=== PATIENT | male | born 1960 | race Caucasian/White ===

== ENCOUNTER 2017-01-08 10:24 | Emergency (ER) | payer MEDICARE ==
--- NOTE | ~2017-01-08 | CT2 ---
[facility] A Service of [facility] RADIOLOGY TEXT RESULTS PATIENT: ROMÁN PLUMMER LOCATION: [facility] : 62 UNIT #: [id number] AGE: [address]: Adelfo Gray MD SEX: M ORDER DR: [id number] [facility] [address] [place], [place] [address] [id number] E MR#: [id number] Acc #: [id number] NAME: ROMÁN PLUMMER. : 1960 SEX: M STUDY DATE/TIME: 01/08/2017 12:31 UNIT: [facility] ROOM: STUDY DESCRIPTION: CT Abd and Pelv W Cont Attending Physician: Adelfo Gray M.D. Ordering Physician: Ellen Lindsey M.D. Primary Care Physician: Brittany Smith M.D. MEDICAL IMAGING REPORT This report is preliminary unless electronic signature is present EXAM CT of abdomen and pelvis with contrast. DATE OF EXAM 01/08/[address] of abdomen and pelvis with contrast dated 07/29/2016. HISTORY Abdominal pain for 2 weeks. Epigastric pain. Patient has dark stools now. Nausea, vomiting and diarrhea. TECHNIQUE NOTE: This CT exam was performed with one or more of the following radiation dose reduction techniques: automatic exposure control, adjustment of mA and/or kV according to patient size, and iterative reconstruction. FINDINGS CT of the abdomen and pelvis were obtained with IV and oral contrast in the axial plane followed by sagittal and coronal reformats. LOWER CHEST: Minimal atelectatic changes are noted in the right lung base. There are also atelectatic changes in the inferior aspect of the left lingula with a small nodular component of about a centimeter. Stable appearance in the last 6 months. No pleural effusion, pneumothorax or new lung mass. ABDOMEN: Status post cholecystectomy. Liver, spleen, pancreas, bilateral kidneys, and bilateral adrenal glands are within normal limits. Given the lack of oral contrast, evaluation of the GI tract is limited. No obvious bowel obstruction, free fluid or free air is seen intraperitoneally. [facility] A Service of [facility] RADIOLOGY TEXT RESULTS PATIENT: ROMÁN PLUMMER LOCATION: [facility] : 62 UNIT #: [id number] AGE: [address]: Adelfo Gray MD SEX: M ORDER DR: Appendix is within normal limits. No aortic aneurysm, dissection or significant lymphadenopathy. Degenerative changes are noted in the thoracolumbar spine, relatively worse at L4-5 with bnbyhepa-kb-czsiuu canal stenosis and moderate bilateral neural foraminal narrowing. The next worst level is L4-5. There is also chronic compression deformity of T8 vertebral body with about 30% to 40% maximal vertebral body height, chronic and stable. PELVIS: Urinary bladder, prostate, seminal vesicles and bowel loops do not demonstrate any significant abnormality. IMPRESSION 1. No acute abnormality in the abdomen or pelvis. 2. Degenerative changes are noted at multiple levels of the thoracolumbar spine, relatively worse at L4-5 followed by L3-4 as described above. 3. There is mild chronic superior endplate compression deformity of T8. Stable. 4. Inferior left lingula lobe of the lung demonstrates some atelectatic change with a nodular component measuring about a centimeter. It is relatively stable in the last 6 months. No significant new abnormality is seen in the lungs. Dictated by... Barrera Long M.D. THIS IS AN ELECTRONICALLY VERIFIED REPORT Barrera Long M.D. at 01/10/2017 1:51 PM CPR/fley TD: 01/08/2017 15:27 JOB #: [id number] MEDICAL IMAGING REPORT Page 1 of 1 COPY
[~2017-01-08 10:24] MED LIST: ACETAMINOPHEN PO; ADVAIR 500-501 EACH IH; ADVAIR 5001 DISK W/1 IH; ADVAIR 5001 DISK W/D PO; ALLER-TEC10 MG PO; AMBIEN; AMBIEN10 MG PO; AMBIEN12.5 MG PO; AMLODIPINE BESYL5 MG PO; AMOXICILLIN875 MG PO; ASPIRIN81 M1 PO; ASPIRIN81 M2 PO; ATROVENT; ATROVENT NEB; ATROVENT15 ML NS; AUGMENTIN875 M1 PO; AZITHROMYCIN1 GM PO; B-COMPLEX WITH1 EAC1 PO; BAYER ASPIRIN325 M1; BUPROPION HCL150 M1 PO; BUPROPION XL150 MG PO; CALAN-SR CAPL180 MG PO; CARVEDILOL25 MG PO; CHOL; COLACE PO; COREG PO; COREG12.5 M1 PO; COREG12.5 MG PO; COREG3.125 MG; COREG6.25 M1 PO; COREG6.25 MG PO; DALIRESP500 MCG DOB; DALIRESP500 MCG PO; DARVOCET-N 1001 TAB PO; DESYREL100 MG PO; DIGOX0.25 MG PO; DOCUSATE SODIU100 MG PO; DULOXETINE HCL60 MG PO; FISH OIL 1,0001 CA2 PO; FISH OIL 1,0001 CAP PO; FISH OIL 1,0001 EACH PO; FISH OIL 1,001000 MG PO; FISH OIL 10001000 MG PO; FISH OIL500 M2; FLEXERIL; FLEXERIL PO; FLEXERIL10 M1 PO; FLEXERIL10 MG PO; FLOMAX0.4 M1 PO; FLONASE 0.05% N16 G1 INH; FLONASE16 GM; FOSAMAX40 MG PO; Fosamax; HCTZ; HYDROCHLOROTHIA25 MG PO; HYDROCODON-ACE1 EAC9 PO; IPRATROPIUM0.2 MG/ML NEB; LEVAQUIN PO; LORTAB 10 MG-3473 ML; LORTAB 10-5001 EACH PO; LORTAB 7.51 TAB 7.5/ PO; MELATONIN5 M1 PO; NASONEX17 GM; NASONEX17 GM NS; NEURONTIN300 MG PO; NEXIUM; NEXIUM PO; NIASPAN; NIASPAN PO; NIASPAN1000 M1 PO; NIASPAN1000 MG PO; NORVASC PO; NYSTATIN5 ML PO; OXYCODONE HCL10 MG PO; PERCOCET10 PO; PERCOCET7.5 PO; PHENERGAN25 M1 PO; PHENERGAN25 MG PO; PREDNISONE PO; PREDNISONE10 MG PO; PRILOSEC PO; PROVENTIL17 GM IH; SERAX; SEROQUEL PO; SEROQUEL300 M1 PO; SEROQUEL400 MG PO; SINGULAIR; SINGULAIR PO; SINGULAIR5 MG PO; STOOL SOFTENER100 M1 PO; SYMBICORT INH; SYMBICORT80 INH; TRICOR145 MG PO; TYLENOL #3 PO; VALIUM2 MG PO; VERAPAMIL ER180 MG PO; VERAPAMIL ER240 M1 PO; VERAPAMIL ER240 MG PO; VERAPAMIL PO; VICODIN 5/500 T1 TAB PO; VITAMIN C500 M1 PO; VOLTAREN75 MG PO; WELLBUTRIN; WELLBUTRIN PO; WELLBUTRIN SR150 MG PO; XANAX0.5 M1 PO; XANAX0.5 MG PO; XOPENEX HFA15 GM NEB; XOPENEX0.63 MG/3 IH; XOPENEX1.25 MG/0. NEB; XOPENEX1.25 MG/3; XOPENEX1.25 MG/3 IH; XOPENEX1.25 MG/3 INH; ZITHROMAX PO; ZYRTEC PO; ZYRTEC10 M1 PO; ZYRTEC10 M2 PO; ZYRTEC10 M3 PO; [UNRECOGNIZED DRUG - OTHER]; [UNRECOGNIZED DRUG - OTHER]; [UNRECOGNIZED DRUG - OTHER]; [UNRECOGNIZED DRUG - OTHER]; [UNRECOGNIZED DRUG - OTHER] PO
[2017-01-08 10:49] LABS: BASOPHIL# 0.1 X10e3 (0-0.3); BASOPHIL% 0.7 % (0-2.5); EOSINOPHIL# 0.9 X10e3 (0-0.7); EOSINOPHIL% 5.9 % (0.0-7.0); HEMATOCRIT 48.3 % (38.0-50.0); LYMPHOCYTE# 3.1 X10e3 (1.0-3.5); LYMPHOCYTE% 20.2 % (17.0-45.0); MEAN CELL VOLUME 84.5 FL (83-96); MEAN CORPUSCULAR HGB CONC 33.2 g/dL (30-36); MEAN PLATELET VOLUME 8.7 FL (6.5-11.5); MONOCYTE# 1.2 X10e3 (0-1.0); MONOCYTE% 7.6 % (3.0-12.0); NEUTROPHIL# 10.1 X10e3 (1.5-7.1); NEUTROPHIL% 65.6 % (40-75); PLATELET COUNT 207 X10e3 (140-420); RED BLOOD COUNT 5.72 X10e (3.90-5.60); RED CELL DISTRIBUTION WIDTH 13.3 % (11.0-15.5); WHITE BLOOD COUNT 15.4 X10e3 (4.0-10.5)
[2017-01-08 10:52] LABS: URINE SOURCE CLEAN CATCH
[2017-01-08 11:01] LABS: PARTIAL THROMBOPLASTIN TIME 28.2 SECONDS (23.5-31.3); PROTHROMBIN TIME (PATIENT) 10.7 SECONDS (9.6-11.5)
[2017-01-08 11:13] LABS: DIFF IND NO
[2017-01-08 11:17] LABS: URINE APPEARANCE CLEAR; URINE BLOOD NEG (NEG); URINE COLOR DK YELLOW; URINE GLUCOSE NEG (NEG); URINE KETONE TRACE (NEG); URINE LEUKOCYTE ESTERASE TRACE (NEG); URINE NITRATE NEG (NEG); URINE PH 5.5 (5-8); URINE PROTEIN NEG (NEG); URINE SPECIFIC GRAVITY 1.028 (1.003-1.035)
[2017-01-08 11:22] LABS: CULTURE INDICATED? YES; URINE BACTERIA AUWI NEG (NEGATIVE); URINE SQUAMOUS EPITHELIAL CELL NONE SEEN /[HPF]
[2017-01-08 11:23] LABS: URINE BILIRUBIN NEG (NEG)
[2017-01-08 11:48] LABS: ALBUMIN SERUM 4.2 g/dL (3.5-5.0); BILIRUBIN, DIRECT 0.1 mg/dL (0.0-0.2); BILIRUBIN,INDIRECT 0.8 mg/dL (0.0-0.9); BILIRUBIN,TOTAL 0.9 mg/dL (0.2-2.0); BUN/CREATININE RATIO 12.22; CALCIUM SERUM 9.3 mg/dL (8.4-10.2); CREATININE SERUM 0.9 mg/dL (0.6-1.4); GLOM FILT RATE Estimated 95.8 mL/min (>60); POTASSIUM 3.8 mmol/L (3.5-5.1); PROTEIN TOTAL SERUM 7.7 g/dL (6.0-8.3)
== END 2017-01-08 15:10 | disposition home or self-care (01) ==
LOC: CED 10:24
PROVIDERS: Emergency Medicine
DX: R10.11 Right upper quadrant pain (principal); R10.12 Left upper quadrant pain; K92.2 Gastrointestinal hemorrhage, unspecified; I25.10 Atherosclerotic heart disease of native coronary artery without angina pectoris; I10 Essential (primary) hypertension; J44.9 Chronic obstructive pulmonary disease, unspecified; F41.9 Anxiety disorder, unspecified; F32.9 Major depressive disorder, single episode, unspecified; E78.00 Pure hypercholesterolemia, unspecified; Z90.49 Acquired absence of other specified parts of digestive tract; K21.9 Gastro-esophageal reflux disease without esophagitis; Z88.8 Allergy status to other drugs, medicaments and biological substances; Z91.040 Latex allergy status; Z79.899 Other long term (current) drug therapy; Z79.82 Long term (current) use of aspirin
CPT/HCPCS: 36415; 74177; 80048; 80076; 81003; 83690; 85025; 85610; 85730; 86900; 86901; 87086; 96361; 96374; 96375; 99291; C9113; J1170; J2405; Q9967

== ENCOUNTER 2017-01-09 20:54 | Emergency (ER) | payer MEDICARE ==
[2017-01-09 21:27] LABS: BASOPHIL# 0.1 X10e3 (0-0.3); BASOPHIL% 0.7 % (0-2.5); EOSINOPHIL# 0.4 X10e3 (0-0.7); EOSINOPHIL% 2.7 % (0.0-7.0); HEMATOCRIT 43.1 % (38.0-50.0); HEMOGLOBIN 14.5 gm/dL (13.0-16.0); LYMPHOCYTE% 20.5 % (17.0-45.0); MEAN CELL VOLUME 83.7 FL (83-96); MEAN CORPUSCULAR HEMOGLOBIN 28.2 PG (28-34); MEAN CORPUSCULAR HGB CONC 33.7 g/dL (30-36); MEAN PLATELET VOLUME 8.4 FL (6.5-11.5); MONOCYTE# 1.1 X10e3 (0-1.0); MONOCYTE% 7.2 % (3.0-12.0); NEUTROPHIL# 10.1 X10e3 (1.5-7.1); NEUTROPHIL% 68.9 % (40-75); PLATELET COUNT 194 X10e3 (140-420); RED BLOOD COUNT 5.14 X10e (3.90-5.60); RED CELL DISTRIBUTION WIDTH 13.2 % (11.0-15.5); WHITE BLOOD COUNT 14.7 X10e3 (4.0-10.5)
[2017-01-09 21:35] LABS: DIFF IND NO
[2017-01-09 21:54] LABS: ALBUMIN SERUM 4.2 g/dL (3.5-5.0); BILIRUBIN, DIRECT 0.1 mg/dL (0.0-0.2); BILIRUBIN,INDIRECT 0.9 mg/dL (0.0-0.9); BUN/CREATININE RATIO 10.9; CALCIUM SERUM 9.4 mg/dL (8.4-10.2); CREATININE SERUM 1.1 mg/dL (0.6-1.4); GLOM FILT RATE Estimated 75.2 mL/min (>60); POTASSIUM 3.8 mmol/L (3.5-5.1); PROTEIN TOTAL SERUM 7.6 g/dL (6.0-8.3)
[2017-01-09 22:21] LABS: URINE SOURCE CLEAN CATCH
[2017-01-09 22:31] LABS: URINE APPEARANCE CLEAR; URINE BILIRUBIN NEG (NEG); URINE BLOOD NEG (NEG); URINE COLOR YELLOW; URINE GLUCOSE NEG (NEG); URINE KETONE NEG (NEG); URINE LEUKOCYTE ESTERASE NEG (NEG); URINE NITRATE NEG (NEG); URINE PROTEIN NEG (NEG); URINE SPECIFIC GRAVITY 1.017 (1.003-1.035)
[2017-01-09 22:39] LABS: CULTURE INDICATED? NO
== END 2017-01-10 02:15 | disposition home or self-care (01) ==
LOC: CED 20:54
DX: R10.9 Unspecified abdominal pain (principal); Z91.040 Latex allergy status; Z88.8 Allergy status to other drugs, medicaments and biological substances; Z79.82 Long term (current) use of aspirin; Z79.899 Other long term (current) drug therapy
CPT/HCPCS: 36415; 80048; 80076; 81003; 83690; 85025; 96374; 96375; 99284; C9113; J2405

== ENCOUNTER 2017-01-17 05:49 | Emergency (ER) | payer MEDICARE ==
--- NOTE | ~2017-01-17 | EKG ---
PATIENT: ROMÁN PLUMMER UNIT #: [id number] Ventricular Rate: 129 BPM Atrial Rate: 129 BPM P-R Interval: 152 ms QRS Duration: 88 ms Q-T Interval: 294 ms QTC Calculation(Bezet): 430 ms P [place]: 52 degrees Calculated R [place]: -2 degrees Calculated T [place]: 51 degrees Diagnosis Line: Sinus tachycardia Diagnosis Line: Otherwise normal ECG Diagnosis Line: When compared with ECG of 30-JUL-2016 17:58, Diagnosis Line: Nonspecific T wave abnormality no longer evident Diagnosis Line: in Inferior leads Diagnosis Line: Nonspecific T wave abnormality, improved in Diagnosis Line: Lateral leads Diagnosis Line: Confirmed by MAHESH MILLARD MD ([id number]) on 01/18/2017 Diagnosis Line: 5:30:18 AM INTERPRETING MD: VENICE CARBONE
--- NOTE | ~2017-01-17 | CT2 ---
[facility] A Service of [facility] & [facility] RADIOLOGY TEXT RESULTS PATIENT: ROMÁN PLUMMER LOCATION: [facility] : 62 UNIT #: [id number] AGE: [address]: Sathish Watts MD SEX: M ORDER DR: [id number] [facility] [address] [place], [place] [address] [id number] E MR#: [id number] Acc #: [id number] NAME: ROMÁN PLUMMER : 1960 SEX: M STUDY DATE/TIME: 01/17/2017 8:09 UNIT: [facility] ROOM: STUDY DESCRIPTION: CT Abd and Pelv W Cont Attending Physician: Sathish Watts M.D. Ordering Physician: Michael Canas M.D. Primary Care Physician: Brittany Smith M.D. MEDICAL IMAGING REPORT This report is preliminary unless electronic signature is present EXAM CT abdomen and pelvis with contrast, 01/17/2017. HISTORY 56-year-old male in the ED complaining of mid to lower abdomen pain beginning at about 2000 hours on 01/16/2017. He was recently evaluated through the here on 01/08/2017 with 2-week history of abdomen pain, and abdomen CT at that time showed no acute abnormality. TECHNIQUE CT examination of the abdomen and pelvis with IV contrast. GI contrast material was not ordered. This CT exam was performed with one or more of the following radiation dose reduction techniques: automatic exposure control, adjustment of mA and/or kV according to patient size, and iterative reconstruction. FINDINGS Abdomen: Cholecystectomy. No bile duct dilatation. Liver, pancreas and spleen are normal in size and appearance. Small bowel and colon are normal in caliber and appearance, as imaged. The appendix appears normal. Both kidneys are negative with no evidence of urinary obstruction. Normal-caliber abdominal aorta. Mesenteric arteries are widely patent. Pelvis: Bladder, prostate and rectum are within normal limits. No significant inguinal or abdominal wall hernia. Lung base images show minimal scarring or atelectasis in the right lung base. IMPRESSION 1. No acute abnormality is identified within the abdomen or pelvis. No change since the recent study of 01/08/2017. STS. [facility] A Service of [facility] & [facility] RADIOLOGY TEXT RESULTS PATIENT: ROMÁN PLUMMER LOCATION: [facility] : 62 UNIT #: [id number] AGE: [address]: Sathish Watts MD SEX: M ORDER DR: 2. Cholecystectomy. 3. The appendix appears normal. Dictated by... Reese Higgins M.D. THIS IS AN ELECTRONICALLY VERIFIED REPORT Reese Higgisn M.D. at 01/18/2017 2:04 PM Vishal TD: 01/17/2017 10:40 JOB #: [id number] MEDICAL IMAGING REPORT Page 1 of 1 COPY
--- NOTE | ~2017-01-17 | CR72 ---
[facility] A Service of [facility] & [facility] RADIOLOGY TEXT RESULTS PATIENT: ROMÁN PLUMMER LOCATION: [facility] : 62 UNIT #: [id number] AGE: [address]: Sathish Watts MD SEX: M ORDER DR: [id number] [facility] [address] [place], [place] [address] [id number] E MR#: [id number] Acc #: [id number] NAME: ROMÁN PLUMMER : 1960 SEX: M STUDY DATE/TIME: 01/17/2017 5:32 UNIT: [facility] ROOM: STUDY DESCRIPTION: CR Chest Single View Portable Attending Physician: Sathish Watts M.D. Ordering Physician: Michael Canas M.D. Primary Care Physician: Brittany Smith M.D. MEDICAL IMAGING REPORT This report is preliminary unless electronic signature is present EXAM Portable chest INDICATION Chest pain beginning this morning. COMPARISON 05/03/2016. FINDINGS A portable view of the chest was obtained. The heart size and vascularity are normal and the lungs are clear. The bones are normal. IMPRESSION No active disease. Dictated by... Frankie Vela M.D. THIS IS AN ELECTRONICALLY VERIFIED REPORT Frankie Vela M.D. at 01/17/2017 1:24 PM ROLAND/alivia TD: 01/17/2017 09:37 JOB #: [id number] MEDICAL IMAGING REPORT Page 1 of 1 COPY
[2017-01-17 05:31] LABS: POC - CKMB <1.0 ng/mL (0.0-7.9); POC - TROPONIN <0.05 ng/mL (<=0.05)
[2017-01-17 06:04] LABS: BASOPHIL# 0.1 X10e3 (0-0.3); BASOPHIL% 0.6 % (0-2.5); EOSINOPHIL# 0.4 X10e3 (0-0.7); EOSINOPHIL% 2.7 % (0.0-7.0); HEMATOCRIT 43.3 % (38.0-50.0); HEMOGLOBIN 14.2 gm/dL (13.0-16.0); LYMPHOCYTE# 2.4 X10e3 (1.0-3.5); LYMPHOCYTE% 17.7 % (17.0-45.0); MEAN CELL VOLUME 84.7 FL (83-96); MEAN CORPUSCULAR HEMOGLOBIN 27.8 PG (28-34); MEAN CORPUSCULAR HGB CONC 32.8 g/dL (30-36); MEAN PLATELET VOLUME 8.6 FL (6.5-11.5); MONOCYTE% 7.2 % (3.0-12.0); NEUTROPHIL# 9.9 X10e3 (1.5-7.1); NEUTROPHIL% 71.8 % (40-75); PLATELET COUNT 190 X10e3 (140-420); RED BLOOD COUNT 5.11 X10e (3.90-5.60); RED CELL DISTRIBUTION WIDTH 13.3 % (11.0-15.5); WHITE BLOOD COUNT 13.8 X10e3 (4.0-10.5)
[2017-01-17 06:05] LABS: DIFF IND NO
[2017-01-17 06:33] LABS: ALBUMIN SERUM 4.1 g/dL (3.5-5.0); BILIRUBIN, DIRECT 0.1 mg/dL (0.0-0.2); BILIRUBIN,INDIRECT 0.9 mg/dL (0.0-0.9); CALCIUM SERUM 8.8 mg/dL (8.4-10.2); CREATININE SERUM 0.8 mg/dL (0.6-1.4); GLOM FILT RATE Estimated 100.6 mL/min (>60); POTASSIUM 3.8 mmol/L (3.5-5.1); PROTEIN TOTAL SERUM 7.3 g/dL (6.0-8.3)
[2017-01-17 07:37] LABS: POC - CKMB <1.0 ng/mL (0.0-7.9); POC - TROPONIN <0.05 ng/mL (<=0.05)
== END 2017-01-17 11:22 | disposition home or self-care (01) ==
LOC: CED 05:49
PROVIDERS: Emergency Medicine
DX: R10.30 Lower abdominal pain, unspecified (principal); I25.2 Old myocardial infarction; E78.5 Hyperlipidemia, unspecified; I10 Essential (primary) hypertension; Z87.442 Personal history of urinary calculi; J44.9 Chronic obstructive pulmonary disease, unspecified; Z91.040 Latex allergy status; Z88.8 Allergy status to other drugs, medicaments and biological substances; Z91.018 Allergy to other foods; Z79.899 Other long term (current) drug therapy
CPT/HCPCS: 36415; 71010; 74177; 80048; 80076; 82553; 83605; 83690; 84484; 85025; 93005; 96361; 96374; 96375; 99284; J1170; J2405; Q9967

== ENCOUNTER 2017-01-21 17:23 | Emergency (ER) | payer MEDICARE, OTHER ==
[2017-01-21 17:53] LABS: BASOPHIL% 0.3 % (0-2.5); EOSINOPHIL# 0.6 X10e3 (0-0.7); EOSINOPHIL% 3.7 % (0.0-7.0); HEMOGLOBIN 15.8 gm/dL (13.0-16.0); LYMPHOCYTE% 13.2 % (17.0-45.0); MEAN CELL VOLUME 84.3 FL (83-96); MEAN CORPUSCULAR HEMOGLOBIN 28.4 PG (28-34); MEAN CORPUSCULAR HGB CONC 33.7 g/dL (30-36); MONOCYTE# 1.2 X10e3 (0-1.0); MONOCYTE% 7.7 % (3.0-12.0); NEUTROPHIL# 11.4 X10e3 (1.5-7.1); NEUTROPHIL% 75.1 % (40-75); PLATELET COUNT 193 X10e3 (140-420); RED BLOOD COUNT 5.58 X10e (3.90-5.60); RED CELL DISTRIBUTION WIDTH 13.3 % (11.0-15.5); WHITE BLOOD COUNT 15.2 X10e3 (4.0-10.5)
[2017-01-21 17:55] LABS: DIFF IND NO
[2017-01-21 18:11] LABS: ALBUMIN SERUM 4.2 g/dL (3.5-5.0); BILIRUBIN, DIRECT 0.1 mg/dL (0.0-0.2); BILIRUBIN,INDIRECT 0.7 mg/dL (0.0-0.9); BILIRUBIN,TOTAL 0.8 mg/dL (0.2-2.0); CALCIUM SERUM 9.5 mg/dL (8.4-10.2); GLOM FILT RATE Estimated 84.4 mL/min (>60); POTASSIUM 4.6 mmol/L (3.5-5.1)
== END 2017-01-21 19:18 | disposition home or self-care (01) ==
LOC: SED 17:23
PROVIDERS: Nurse Practitioner
DX: R10.11 Right upper quadrant pain (principal); R10.13 Epigastric pain; R11.2 Nausea with vomiting, unspecified; E78.5 Hyperlipidemia, unspecified; I10 Essential (primary) hypertension; J44.9 Chronic obstructive pulmonary disease, unspecified; I25.2 Old myocardial infarction; Z87.442 Personal history of urinary calculi; Z79.899 Other long term (current) drug therapy; Z91.040 Latex allergy status; Z91.018 Allergy to other foods; Z88.8 Allergy status to other drugs, medicaments and biological substances
CPT/HCPCS: 36415; 80048; 80076; 82150; 82270; 83690; 85025; 94640; 96361; 96374; 99284; J2405

== ENCOUNTER 2017-01-29 18:39 | Inpatient (IN) | payer MEDICARE ==
--- NOTE | ~2017-01-29 | DS ---
Unit #: [id number] #: [id number] Patient: ROMÁN PLUMMER [id number] [address] [id number] I MR#: [id number] NAME: ORMÁN PLUMMER. ROOM: 242 Age: 56 Sex: M Admission Date: 01/29/2017 : 1960 Discharge Date: 02/01/2017 Attending Physician: Gagan Molina M.D. Primary Care Physician: Brittany Smith M.D. DISCHARGE SUMMARY DISCHARGE DIAGNOSES 1. Acute exacerbation of chronic obstructive pulmonary disease. 2. Acute bronchitis. 3. Chronic abdominal pain, scheduled to see GI tomorrow. 4. Leukocytosis most likely secondary to steroids. 5. Microscopic hematuria with a urinalysis 5 to 10 red cells. 6. Chronic obstructive pulmonary disease/asthma on chronic prednisone therapy. 7. Suspected noncompliance with inhaled controlling agents as well as office followup. 8. Obstructive sleep apnea, noncompliant with continuous positive airway pressure. 9. Hypertension. 10. Hyperlipidemia. 11. Anxiety. 12. Depression. 13. Chronic pain. 14. History of atrial arrhythmias. 15. Gastroesophageal reflux. DISCHARGE MEDICATIONS 1. Dulera 200 mg two puffs twice a day with spacer. 2. Albuterol as needed. 3. Prednisone 40 mg. Taper to 10 mg a day. Further tapering as per Dr. Carter. 4. Z-Arcenio as directed. 5. Xanax 0.5 mg b.i.d. 6. Coreg 3.125 mg b.i.d. 7. Verapamil 240 mg a day. 8. Oxycodone as per his family physician. 9. Zyban 150 mg twice a day. 10. Zofran p.r.n. 11. Claritin 10 mg a day. 12. Phenergan p.r.n. 13. Ambien p.r.n. as per previous prescriptions. 14. Niacin 2,000 mg at bedtime. 15. Aspirin 81 mg a day if he was taking it previously. Please note Daliresp has been discontinued given his abdominal discomfort. DIET As tolerated. ACTIVITY Unit #: [id number] #: [id number] Patient: ROMÁN PLUMMER No specific restrictions. FOLLOWUP 1. Dr. Smith for general medical care including his microscopic hematuria in two weeks. 2. He will keep his appointment with his GI physician tomorrow. 3. He will follow up in our office in approximately two weeks and then further follow up with Dr. Carter. DESCRIPTION OF HOSPITALIZATION The patient was admitted through the emergency room by Dr. Thompson, treated for an exacerbation with steroids, antibiotics, nebulized bronchodilators. He improved as suspected. He did have a leukocytosis. Chest x-ray was negative. He was totally asymptomatic and review of systems did not identify any infection. Urinalysis revealed 5 to 10 red cells but no white cells. On the day of discharge, he had rare wheezing. He was able to perform all activities of daily living. He was on room air. He was discharged in improved condition. Once again, I have discussed with him the absolute importance of compliance with office followup, compliance with inhaled bronchodilators as well as controlling agents. Long-term prednisone therapy as per Dr. Carter. Dictated by... Gagan Molina M.D. GALLO/mamie TD: 02/02/2017 08:18 JOB #: [id number] DISCHARGE SUMMARY Page 1 of 1 X Gagan Molina MD X DISCHARGE SUMMARY
--- NOTE | ~2017-01-29 | CR72 ---
[facility] A Service of [facility] & [facility] RADIOLOGY TEXT RESULTS PATIENT: ROMÁN PLUMMER LOCATION: [facility] 242- : 62 UNIT #: [id number] AGE: [address]: Gagan Molina MD SEX: M ORDER DR: [id number] [facility] [address] [place], [place] [address] [id number] E MR#: [id number] Acc #: [id number] NAME: ROMÁN PLUMMER : 1960 SEX: M STUDY DATE/TIME: 01/29/2017 18:00 UNIT: [facility] ROOM: STUDY DESCRIPTION: CR Chest Single View Portable Attending Physician: Maikel Love M.D. Ordering Physician: Lazarus Glass M.D. Primary Care Physician: Brittany Smith M.D. MEDICAL IMAGING REPORT This report is preliminary unless electronic signature is present EXAM Portable chest. HISTORY Shortness of air, cough and congestion for 3 days. FINDINGS The cardiac size and pulmonary vascularity are normal. Mild mid-right thoracic curve. Mild linear atelectasis or scarring in the right lung base. Mild chronic elevation of the right hemidiaphragm. No airspace infiltrates or effusions. IMPRESSION No acute findings. No active disease. Dictated by... Dylan Rodriguez M.D. THIS IS AN ELECTRONICALLY VERIFIED REPORT Dylan Rodriguez M.D. at 01/29/2017 11:45 PM KARLEE/fely TD: 01/29/2017 21:23 JOB #: [id number] MEDICAL IMAGING REPORT Page 1 of 1 COPY
--- NOTE | ~2017-01-29 | CO ---
Unit #: [id number] #: [id number] Patient: ROMÁN PLUMMER [id number] [facility] [place], [place] [address] [id number] I MR#: [id number] NAME: ROMÁN PLUMMER. ROOM: 242 Age: 56 Sex: M Admission Date: 01/29/2017 : 1960 Attending Physician: Gagan Molina M.D. Primary Care Physician: Brittany Smith M.D. CONSULTATION REPORT HISTORY OF PRESENT ILLNESS Mr. Plummer is a 56-year-old white male, who is well known to our practice and is followed by Dr. Carter usually in the office. He is a lifelong nonsmoker, but was admitted with increasing cough, shortness of breath, sputum production, and wheezing. He denies hemoptysis, hoarseness, or weight loss. He was last admitted in July 2016. Specific medical problems include previous cholecystectomy, chronic obstructive pulmonary disease/asthma, on chronic prednisone. He has been noncompliant with medical therapy, obstructive sleep apnea, noncompliant with CPAP, hypertension, hyperlipidemia, anxiety, depression, chronic back pain, history of atrial arrhythmias, gastroesophageal reflux, and nephritis. MEDICATIONS Include Daliresp, Singulair, Xopenex, Atrovent, prednisone, Percocet, Niaspan, stool softener, Seroquel, Desyrel, verapamil, Zyrtec, melatonin, bupropion, Nexium, Xanax, Flexeril, Lanoxin, aspirin, Ambien, and vitamins. ALLERGIES To albuterol and latex. SOCIAL HISTORY Negative for smoking and drinking. FAMILY HISTORY Negative for familial lung disease. REVIEW OF SYSTEMS Positive for chronic back pain and some shortness of breath. PHYSICAL EXAMINATION GENERAL: He is awake white male, in no acute distress. VITAL SIGNS: Blood pressure 146/94, heart rate 110, he is afebrile. HEAD AND NECK: Normocephalic. Pupils are round, reactive to light. Sclerae nonicteric. Nasal and oral mucosa clear. There is no obvious cervical or supraclavicular cervical adenopathy. CHEST: There is increased AP diameter of chest with diminished breath sounds and few expiratory wheezes. HEART: Slight systolic murmur is present without rubs or gallops. ABDOMEN: Soft, nontender without enlargement of the spleen or liver. NEUROLOGIC: He is awake, alert, oriented and seems anxious, but has no neurologic findings. EXTREMITIES: There is no clubbing, cyanosis, or edema. SKIN: Warm and dry free of rashes. Unit #: [id number] #: [id number] Patient: ROMÁN PLUMMER JOINTS: Not inflamed or swollen. DIAGNOSTIC STUDIES IMAGING STUDIES: Chest x-ray showed no active disease by report. LABORATORY RESULTS: Arterial blood gases showed a pH of 7.43, CO2 of 41, O2 of 50 on room air. Glucose was 154, BUN of 16, sodium 136, potassium 4.2, chloride 103, CO2 of 21. B12 of 564. Folate more than 25. INR 1.0. White count 21 probably secondary to steroids, hemoglobin 15.6, hematocrit of 48. IMPRESSION Acute exacerbation of bronchospasm and chronic obstructive pulmonary disease. PLAN We will plan on brief dose of intravenous steroids, inhaled bronchodilators, and p.o. antibiotics. Dictated by... Jerrica Peng/emmy TD: 01/30/2017 23:47 JOB #: [id number] CONSULTATION REPORT Page 1 of 1 X Rogelio Thompson MD X CONSULTATION REPORT
--- NOTE | ~2017-01-29 | EKG ---
PATIENT: ROMÁN PLUMMER UNIT #: [id number] Ventricular Rate: 127 BPM Atrial Rate: 127 BPM P-R Interval: 148 ms QRS Duration: 86 ms Q-T Interval: 306 ms QTC Calculation(Bezet): 444 ms P [place]: 50 degrees Calculated R [place]: -4 degrees Calculated T [place]: 51 degrees Diagnosis Line: Sinus tachycardia with Premature atrial complexes Diagnosis Line: Otherwise normal ECG Diagnosis Line: No previous ECGs available Diagnosis Line: Confirmed by JUSTINA SEAY MD ([id number]) on Diagnosis Line: 02/01/2017 4:31:22 PM INTERPRETING MD: DAWOOD CARBONE
[2017-01-29 18:13] LABS: BASOPHIL% 0.4 % (0-2.5); EOSINOPHIL% 0.1 % (0.0-7.0); HEMATOCRIT 49.3 % (38.0-50.0); HEMOGLOBIN 16.5 gm/dL (13.0-16.0); LYMPHOCYTE# 1.5 X10e3 (1.0-3.5); LYMPHOCYTE% 13.5 % (17.0-45.0); MEAN CELL VOLUME 83.8 FL (83-96); MEAN CORPUSCULAR HGB CONC 33.4 g/dL (30-36); MEAN PLATELET VOLUME 8.6 FL (6.5-11.5); MONOCYTE# 0.2 X10e3 (0-1.0); MONOCYTE% 1.7 % (3.0-12.0); NEUTROPHIL# 9.2 X10e3 (1.5-7.1); NEUTROPHIL% 84.3 % (40-75); PLATELET COUNT 228 X10e3 (140-420); RED BLOOD COUNT 5.88 X10e (3.90-5.60); RED CELL DISTRIBUTION WIDTH 13.4 % (11.0-15.5)
[2017-01-29 18:14] LABS: DIFF IND NO
[2017-01-29 18:26] LABS: POC - CKMB <1.0 ng/mL (0.0-7.9); POC - TROPONIN <0.05 ng/mL (<=0.05)
[2017-01-29 18:33] LABS: ALBUMIN SERUM 4.6 g/dL (3.5-5.0); BILIRUBIN, DIRECT 0.1 mg/dL (0.0-0.2); BILIRUBIN,INDIRECT 0.6 mg/dL (0.0-0.9); BILIRUBIN,TOTAL 0.7 mg/dL (0.2-2.0); CALCIUM SERUM 9.7 mg/dL (8.4-10.2); GLOM FILT RATE Estimated 84.4 mL/min (>60); POTASSIUM 4.5 mmol/L (3.5-5.1); PROTEIN TOTAL SERUM 8.4 g/dL (6.0-8.3)
[2017-01-29] MEDS ORDERED: ZOFRAN8 MG PO (19:45)
[2017-01-29] MEDS ORDERED: PHENERGAN PO (19:46)
[2017-01-29] MEDS ORDERED: ALPRAZOLAM0.5 MG PO (19:46)
[2017-01-29] MEDS ORDERED: BUPROPION HCL150 M2 PO (19:47)
[2017-01-29] MEDS ORDERED: DALIRESP500 MCG PO (19:48)
[2017-01-29] MEDS ORDERED: CARVEDILOL3.125 MG PO (19:48)
[2017-01-29] MEDS ORDERED: CLARITIN10 M3 PO (19:49)
[2017-01-29] MEDS ORDERED: NIACIN1000 MG PO (19:49)
[2017-01-29] MEDS ORDERED: OXYCODONE HCL10 MG PO (19:51)
[2017-01-29] MEDS ORDERED: VERAPAMIL ER240 MG PO (19:51)
[2017-01-29] MEDS ORDERED: AMBIEN10 MG PO (19:57)
[2017-01-30 08:26] LABS: BASOPHIL% 0.2 % (0-2.5); HEMOGLOBIN 15.6 gm/dL (13.0-16.0); LYMPHOCYTE# 1.7 X10e3 (1.0-3.5); LYMPHOCYTE% 7.8 % (17.0-45.0); MEAN CELL VOLUME 84.5 FL (83-96); MEAN CORPUSCULAR HEMOGLOBIN 27.4 PG (28-34); MEAN CORPUSCULAR HGB CONC 32.5 g/dL (30-36); MEAN PLATELET VOLUME 8.2 FL (6.5-11.5); MONOCYTE# 0.3 X10e3 (0-1.0); MONOCYTE% 1.3 % (3.0-12.0); NEUTROPHIL# 19.6 X10e3 (1.5-7.1); NEUTROPHIL% 90.7 % (40-75); PLATELET COUNT 213 X10e3 (140-420); RED BLOOD COUNT 5.68 X10e (3.90-5.60); RED CELL DISTRIBUTION WIDTH 13.2 % (11.0-15.5); WHITE BLOOD COUNT 21.6 X10e3 (4.0-10.5)
[2017-01-30 08:27] LABS: DIFF IND YES
[2017-01-30 08:47] LABS: CALCIUM SERUM 9.4 mg/dL (8.4-10.2); CREATININE SERUM 0.8 mg/dL (0.6-1.4); GLOM FILT RATE Estimated 100.6 mL/min (>60); POTASSIUM 4.2 mmol/L (3.5-5.1)
[2017-01-30 08:49] LABS: PLATELET ESTIMATE NORMAL (NORMAL); POIKILOCYTOSIS SL
[2017-01-31 06:33] LABS: HEMATOCRIT 44.6 % (38.0-50.0); HEMOGLOBIN 14.8 gm/dL (13.0-16.0); MEAN CORPUSCULAR HEMOGLOBIN 27.9 PG (28-34); MEAN CORPUSCULAR HGB CONC 33.2 g/dL (30-36); MEAN PLATELET VOLUME 8.2 FL (6.5-11.5); RED BLOOD COUNT 5.3 X10e (3.90-5.60); RED CELL DISTRIBUTION WIDTH 13.4 % (11.0-15.5); WHITE BLOOD COUNT 27.9 X10e3 (4.0-10.5)
[2017-01-31 07:19] LABS: CALCIUM SERUM 9.4 mg/dL (8.4-10.2); CREATININE SERUM 0.8 mg/dL (0.6-1.4); GLOM FILT RATE Estimated 100.6 mL/min (>60); POTASSIUM 4.4 mmol/L (3.5-5.1)
[2017-01-31 15:08] LABS: URINE APPEARANCE CLEAR; URINE BACTERIA AUWI NEG (NEGATIVE); URINE BILIRUBIN NEG (NEG); URINE BLOOD TRACE (NEG); URINE COLOR YELLOW; URINE GLUCOSE NEG (NEG); URINE KETONE NEG (NEG); URINE LEUKOCYTE ESTERASE NEG (NEG); URINE NITRATE NEG (NEG); URINE PROTEIN NEG (NEG); URINE SPECIFIC GRAVITY 1.033 (1.003-1.035); URINE SQUAMOUS EPITHELIAL CELL NONE SEEN /[HPF]; UWBCS1 AUWI 0-2 (0-5)
[2017-02-01 06:58] LABS: HEMATOCRIT 45.8 % (38.0-50.0); HEMOGLOBIN 14.6 gm/dL (13.0-16.0); MEAN CELL VOLUME 85.4 FL (83-96); MEAN CORPUSCULAR HEMOGLOBIN 27.3 PG (28-34); MEAN PLATELET VOLUME 8.5 FL (6.5-11.5); RED BLOOD COUNT 5.36 X10e (3.90-5.60); RED CELL DISTRIBUTION WIDTH 13.4 % (11.0-15.5); WHITE BLOOD COUNT 25.7 X10e3 (4.0-10.5)
[2017-02-01 07:38] LABS: BUN/CREATININE RATIO 21.42; CREATININE SERUM 0.7 mg/dL (0.6-1.4); GLOM FILT RATE Estimated 106.3 mL/min (>60); POTASSIUM 4.6 mmol/L (3.5-5.1)
[2017-02-01] MEDS ORDERED: ZPAK (15:07)
[2017-02-01] MEDS ORDERED: DULERA 100 MCG/13 GM (15:07)
[2017-02-01] MEDS ORDERED: ASPIRIN81 M2 PO (15:07)
[2017-02-01] MEDS ORDERED: PREDNISONE (15:48)
== END 2017-02-01 16:19 | disposition home or self-care (01) | DRG 192 ==
LOC: CED 18:39 → CEDOF 21:05 → C2A 23:14
PROVIDERS: Emergency Medicine; Internal Medicine
DX: J44.0 Chronic obstructive pulmonary disease with (acute) lower respiratory infection (principal); I10 Essential (primary) hypertension; J44.1 Chronic obstructive pulmonary disease with (acute) exacerbation; J20.9 Acute bronchitis, unspecified; R10.9 Unspecified abdominal pain; D72.829 Elevated white blood cell count, unspecified; T38.0X5A Adverse effect of glucocorticoids and synthetic analogues, initial encounter; R31.29 Other microscopic hematuria; Z91.14 Patient's other noncompliance with medication regimen; Z79.52 Long term (current) use of systemic steroids; G47.33 Obstructive sleep apnea (adult) (pediatric); E78.5 Hyperlipidemia, unspecified; F41.9 Anxiety disorder, unspecified; F32.9 Major depressive disorder, single episode, unspecified; G89.29 Other chronic pain; K21.9 Gastro-esophageal reflux disease without esophagitis; Z79.82 Long term (current) use of aspirin; M54.9 Dorsalgia, unspecified
CPT/HCPCS: 36415; 71010; 80048; 80076; 81003; 82553; 84484; 85025; 85027; 87040; 87086; 93005; 94640; 94664; 94760; 96361; 96374; 99285; J1650; J2270; J2405; J2920; J2930

== ENCOUNTER 2017-02-26 06:37 | Emergency (ER) | payer MEDICARE ==
--- NOTE | ~2017-02-26 | CR2 ---
[facility] A Service of [facility] & [facility] RADIOLOGY TEXT RESULTS PATIENT: ROMÁN PLUMMER LOCATION: [facility] : 62 UNIT #: [id number] AGE: [address]: Nora Ahumada APRN SEX: M ORDER DR: [id number] [facility] [address] [place], [place] [address] [id number] E MR#: [id number] Acc #: [id number] NAME: ROMÁN PLUMMER. : 1960 SEX: M STUDY DATE/TIME: 02/26/2017 9:45 UNIT: [facility] ROOM: STUDY DESCRIPTION: CR Abdomen Acute Series Attending Physician: Nora Ahumada A.P.R.N. Ordering Physician: Ed Doc Jerrica Negrete Primary Care Physician: Brittany Smith M.D. MEDICAL IMAGING REPORT This report is preliminary unless electronic signature is present EXAM Acute abdominal series COMPARISON AP view of the abdomen dated 07/29/2016 and 06/14/2014 as well as a PA chest dated 01/29/2017. INDICATION 56-year-old male with nausea, emesis and diarrhea for approximately 1.5 months. FINDINGS There are band-like opacities in both lung bases, which do not appear appreciably changed from January 29, 2017. On subsequent view of the abdomen, these opacities are not as prominent, likely reflecting minimal atelectasis and/or scarring. Cardiomediastinal silhouette is within normal limits for low lung volumes and portable technique. No evidence of pneumothorax, focal airspace disease, or pleural effusion. No free subdiaphragmatic air. Prior cholecystectomy. There is nonspecific short segment mild gaseous dilatation of small bowel loop in the mid abdomen measuring up to 3.5 cm in caliber. Stable left-sided pelvic phleboliths. Mild degenerative change at the roof of the right acetabulum. Degenerative facet disease on the right at L4-L5. IMPRESSION 1. No acute radiographic abnormality of the chest. 2. There is a nonspecific short segment gaseous dilatation of the small bowel in the mid abdomen measuring up to 3.5 cm. Developing bowel obstruction cannot be excluded. The finding is nonspecific and clinical correlation is recommended. Dictated by... [facility] A Service of [facility] & [facility] RADIOLOGY TEXT RESULTS PATIENT: ROMÁN PLUMMER [id number] [birth year] UNIT #: [id number] AGE: [address]: Nora Ahumada APRN SEX: M ORDER DR: Mariusz Sorensen M.D. THIS IS AN ELECTRONICALLY VERIFIED REPORT Mariusz Sorensen M.D. at 03/05/2017 2:18 PM FELISA/jayna TD: 02/26/2017 13:21 JOB #: [id number] MEDICAL IMAGING REPORT Page 1 of 1 COPY
--- NOTE | ~2017-02-26 | CT2 ---
[facility] A Service of [facility] RADIOLOGY TEXT RESULTS PATIENT: ROMÁN PLUMMER LOCATION: [facility] : 62 UNIT #: [id number] AGE: [address]: Nora Ahumada APRN SEX: M ORDER DR: [id number] [facility] [address] [place], [place] [address] [id number] E MR#: [id number] Acc #: [id number] NAME: ROMÁN PLUMMER : 1960 SEX: M STUDY DATE/TIME: 02/26/2017 11:41 UNIT: [facility] ROOM: STUDY DESCRIPTION: CT Abd and Pelv W Cont Attending Physician: Nora Ahumada A.P.R.N. Ordering Physician: Ed Davi Negrete M.D. Primary Care Physician: Brittany Smith M.D. MEDICAL IMAGING REPORT This report is preliminary unless electronic signature is present EXAM CT abdomen and pelvis with IV contrast COMPARISON January 17, 2017 and June 14, 2014. INDICATION 56-year-old male with lower abdominal pain for 1 month, worsening last night. Emesis and diarrhea. TECHNIQUE Axial CT imaging of the abdomen and pelvis was performed after IV administration of 100 mL Isovue-370. Coronal and sagittal reformats were constructed. This CT exam was performed with one or more of the following radiation dose reduction techniques: automatic exposure control, adjustment of mA and/or kV according to patient size, and iterative reconstruction. FINDINGS Small bilateral fat-containing inguinal hernias. Multilevel degenerative facet disease of the lower lumbar spine, severe at L5-S1. There is minimal grade 1 anterolisthesis at the same level, degenerative in nature. Degenerative disc height loss L4-L5. Chronic anterior height loss of the T8 vertebral body where Schmorl's node is noted. No acute fractures or suspicious osseous lesions. Band-like atelectasis right lower lobe. Minimal subsegmental atelectasis in the right middle lobe. No acute findings in the lower chest. Prior cholecystectomy. Fatty replacement of the pancreas. The liver, spleen and adrenal glands are unremarkable. There are low-density lesions [facility] A Service of [facility] & [facility] RADIOLOGY TEXT RESULTS PATIENT: ROMÁN PLUMMER LOCATION: [facility] : 62 UNIT #: [id number] AGE: [address]: Nora Ahumada MARKETING COMMUNICATIONS COORDINATOR SEX: M ORDER DR: in both kidneys which are too small to characterize. Some of these were not appreciated previously on January 17, 2017, possibly due to phase of postcontrast imaging. No hydronephrosis or hydroureter. Urinary bladder is unremarkable. There is hypoattenuating area in the central prostate gland which is stable measuring up to 9.0 mm. No bowel obstruction. Normal appendix. Normal caliber of the abdominal aorta, and patency of its main branches. No venous thrombosis. No adenopathy. No free fluid or pneumoperitoneum. There is new mild circumferential thickening of a short segment of the transverse colon at the level of the hepatic flexure favored to be secondary to peristalsis as there is no associated inflammatory change. This is new from January 17, 2017. IMPRESSION 1. No acute abnormality abdomen, pelvis or imaged lower chest. 2. Prior cholecystectomy. 3. Small fat-containing inguinal hernias. 4. 9.0 mm hypoattenuating round lesion in the central prostate, stable from June 2014, possibly reflecting a benign prostatic cyst. Consider correlation with serum PSA. 5. Multiple low-density lesions in both kidneys which are too small to characterize as described in the body of the report. Imaging followup recommended as clinically indicated. Dictated by... Mariusz Sorensen M.D. THIS IS AN ELECTRONICALLY VERIFIED REPORT Mariusz Sorensen M.D. at 03/06/2017 1:19 PM Lyndsey TD: 02/26/2017 13:43 JOB #: [id number] MEDICAL IMAGING REPORT Page 1 of 1 COPY
--- NOTE | ~2017-02-26 | EKG ---
PATIENT: ROMÁN PLUMMER UNIT #: [id number] Ventricular Rate: 97 BPM Atrial Rate: 97 BPM P-R Interval: 196 ms QRS Duration: 90 ms Q-T Interval: 360 ms QTC Calculation(Bezet): 457 ms P [place]: 56 degrees Calculated R [place]: 21 degrees Calculated T [place]: 29 degrees Diagnosis Line: Normal sinus rhythm Diagnosis Line: Normal ECG Diagnosis Line: When compared with ECG of 29-JAN-2017 16:59, Diagnosis Line: Premature atrial complexes are no longer Present Diagnosis Line: Confirmed by CHUCKIE WOMACK MD ([id number]) on Diagnosis Line: 03/01/2017 3:14:17 PM INTERPRETING MD: SHANTA CARBONE
[~2017-02-26 06:37] MED LIST changes: +ALPRAZOLAM0.5 MG PO; +BUPROPION HCL150 M2 PO; +CARVEDILOL3.125 MG PO; +CLARITIN10 M3 PO; +DULERA 100 MCG/13 GM; +NIACIN1000 MG PO; +PHENERGAN PO; +PREDNISONE; +ZOFRAN8 MG PO; +ZPAK
[2017-02-26 08:36] LABS: BASOPHIL# 0.1 X10e3 (0-0.3); BASOPHIL% 0.8 % (0-2.5); EOSINOPHIL# 0.5 X10e3 (0-0.7); HEMATOCRIT 48.2 % (38.0-50.0); HEMOGLOBIN 15.9 gm/dL (13.0-16.0); LYMPHOCYTE# 2.5 X10e3 (1.0-3.5); LYMPHOCYTE% 19.7 % (17.0-45.0); MEAN CELL VOLUME 83.2 FL (83-96); MEAN CORPUSCULAR HEMOGLOBIN 27.5 PG (28-34); MEAN PLATELET VOLUME 8.7 FL (6.5-11.5); MONOCYTE# 1.1 X10e3 (0-1.0); MONOCYTE% 8.8 % (3.0-12.0); NEUTROPHIL# 8.4 X10e3 (1.5-7.1); NEUTROPHIL% 66.7 % (40-75); PLATELET COUNT 205 X10e3 (140-420); RED BLOOD COUNT 5.79 X10e (3.90-5.60); WHITE BLOOD COUNT 12.6 X10e3 (4.0-10.5)
[2017-02-26 08:39] LABS: DIFF IND NO
[2017-02-26 08:42] LABS: POC - CKMB <1.0 ng/mL (0.0-7.9); POC - TROPONIN <0.05 ng/mL (<=0.05)
[2017-02-26 09:06] LABS: ALBUMIN SERUM 4.2 g/dL (3.5-5.0); ALKALINE PHOSPHATASE 89 U/L (32-92); ALT (SGPT) 30 U/L (10-40); AMYLASE 17 U/L (0-46); AST (SGOT) 28 U/L (10-42); BILIRUBIN,TOTAL 0.6 mg/dL (0.2-2.0); BLOOD UREA NITROGEN 11 mg/dL (9-23); BUN/CREATININE RATIO 13.75; CALCIUM SERUM 9.5 mg/dL (8.4-10.2); CARBON DIOXIDE 24 mmol/L (22-31); CHLORIDE 104 mmol/L (100-111); CREATININE SERUM 0.8 mg/dL (0.6-1.4); GLOM FILT RATE Estimated 100.6 mL/min (>60); GLUCOSE FASTING 96 mg/dL (70-110); LIPASE 20 U/L (22-51); POTASSIUM 4.1 mmol/L (3.5-5.1); PROTEIN TOTAL SERUM 7.7 g/dL (6.0-8.3); SODIUM 139 mmol/L (135-145)
[2017-02-26 09:08] LABS: URINE SOURCE CLEAN CATCH
[2017-02-26 09:09] LABS: BILIRUBIN, DIRECT <0.1 mg/dL (0.0-0.2); BILIRUBIN,INDIRECT 0.5 mg/dL (0.0-0.9)
[2017-02-26 09:21] LABS: URINE APPEARANCE CLEAR; URINE BILIRUBIN NEG (NEG); URINE BLOOD NEG (NEG); URINE COLOR DK YELLOW; URINE GLUCOSE NEG (NEG); URINE KETONE NEG (NEG); URINE LEUKOCYTE ESTERASE NEG (NEG); URINE NITRATE NEG (NEG); URINE PH 5.5 (5-8); URINE PROTEIN NEG (NEG); URINE SPECIFIC GRAVITY 1.024 (1.003-1.035)
[2017-02-26 09:25] LABS: CULTURE INDICATED? NO
== END 2017-02-26 12:30 | disposition home or self-care (01) ==
LOC: CED 06:37
PROVIDERS: Nurse Practitioner
DX: R10.9 Unspecified abdominal pain (principal); R11.2 Nausea with vomiting, unspecified; R19.7 Diarrhea, unspecified; I10 Essential (primary) hypertension; E78.5 Hyperlipidemia, unspecified; I25.2 Old myocardial infarction; J44.9 Chronic obstructive pulmonary disease, unspecified; K21.9 Gastro-esophageal reflux disease without esophagitis; G47.30 Sleep apnea, unspecified; Z98.890 Other specified postprocedural states; Z94.9 Transplanted organ and tissue status, unspecified; Z88.8 Allergy status to other drugs, medicaments and biological substances; Z91.09 Other allergy status, other than to drugs and biological substances; Z79.899 Other long term (current) drug therapy; Z79.82 Long term (current) use of aspirin
CPT/HCPCS: 36415; 74022; 74177; 80048; 80076; 81003; 82150; 82553; 83605; 83690; 84484; 85025; 93005; 96361; 96374; 96375; 99284; C9113; J2270; J2405; Q9967

== ENCOUNTER 2017-05-15 08:27 | Emergency (ER) | payer MEDICARE, OTHER ==
[~2017-05-15] VITALS: Ht 188 cm; Wt 133.8 kg
--- NOTE | ~2017-05-15 | CR7 ---
[facility] A Service of [facility] RADIOLOGY TEXT RESULTS PATIENT: ROMÁN PLUMMER LOCATION: [facility] : 62 UNIT #: [id number] AGE: [address]: Adelfo Gray MD SEX: M ORDER DR: [id number] [facility] [address]. [place], [place] [address] [id number] E MR#: [id number] Acc #: [id number] NAME: ROMÁN PLUMMER. : 1960 SEX: M STUDY DATE/TIME: 05/15/2017 9:11 UNIT: JAKI ROOM: STUDY DESCRIPTION: CR Abdomen Single AP View Attending Physician: Adelfo Gray M.D. Ordering Physician: Adelfo Gray M.D. Primary Care Physician: Brittany Smith M.D. MEDICAL IMAGING REPORT This report is preliminary unless electronic signature is present EXAM KUB HISTORY Abdominal pain and distension beginning early this morning. COMPARISON 02/26/2017 TECHNIQUE A single AP view of the abdomen was obtained. FINDINGS Clips are seen in the right upper quadrant. The bowel gas pattern is normal. Gas is seen in both small and large bowel. No evidence of mechanical obstruction. No suspicious soft tissue calcifications noted. IMPRESSION Normal bowel gas pattern. Dictated by... Sathish Aragon M.D. THIS IS AN ELECTRONICALLY VERIFIED REPORT Sathish Aragon M.D. at 05/17/2017 7:22 AM RLF/garrett TD: 05/16/2017 00:28 JOB #: [id number] [facility] A Service of [facility] RADIOLOGY TEXT RESULTS PATIENT: ROMÁN PLUMMER LOCATION: [facility] : 62 UNIT #: [id number] AGE: [address]: Adelfo Gray MD SEX: M ORDER DR: MEDICAL IMAGING REPORT Page 1 of 1 COPY
[2017-05-15 09:15] LABS: BASOPHIL# 0.1 X10e3 (0-0.3); BASOPHIL% 0.9 % (0-2.5); EOSINOPHIL# 0.4 X10e3 (0-0.7); EOSINOPHIL% 3.5 % (0.0-7.0); HEMATOCRIT 42.5 % (38.0-50.0); HEMOGLOBIN 14.3 gm/dL (13.0-16.0); LYMPHOCYTE# 2.9 X10e3 (1.0-3.5); LYMPHOCYTE% 24.3 % (17.0-45.0); MEAN CELL VOLUME 83.9 FL (83-96); MEAN CORPUSCULAR HEMOGLOBIN 28.2 PG (28-34); MEAN CORPUSCULAR HGB CONC 33.6 g/dL (30-36); MEAN PLATELET VOLUME 8.4 FL (6.5-11.5); MONOCYTE# 1.1 X10e3 (0-1.0); MONOCYTE% 9.5 % (3.0-12.0); NEUTROPHIL# 7.4 X10e3 (1.5-7.1); NEUTROPHIL% 61.8 % (40-75); PLATELET COUNT 176 X10e3 (140-420); RED BLOOD COUNT 5.07 X10e (3.90-5.60); RED CELL DISTRIBUTION WIDTH 14.4 % (11.0-15.5)
[2017-05-15 09:18] LABS: DIFF IND NO
[2017-05-15 09:39] LABS: ALBUMIN SERUM 3.7 g/dL (3.5-5.0); ALKALINE PHOSPHATASE 76 U/L (32-92); ALT (SGPT) 24 U/L (10-40); AMYLASE 17 U/L (0-46); AST (SGOT) 20 U/L (10-42); BILIRUBIN,TOTAL 0.3 mg/dL (0.2-2.0); BLOOD UREA NITROGEN 14 mg/dL (9-23); BUN/CREATININE RATIO 15.55; CALCIUM SERUM 8.6 mg/dL (8.4-10.2); CARBON DIOXIDE 26 mmol/L (22-31); CHLORIDE 103 mmol/L (100-111); CREATININE SERUM 0.9 mg/dL (0.6-1.4); GLOM FILT RATE Estimated 95.8 mL/min (>60); GLUCOSE FASTING 104 mg/dL (70-110); LIPASE 24 U/L (22-51); POTASSIUM 3.7 mmol/L (3.5-5.1); PROTEIN TOTAL SERUM 6.8 g/dL (6.0-8.3); SODIUM 137 mmol/L (135-145)
[2017-05-15 09:40] LABS: BILIRUBIN, DIRECT <0.1 mg/dL (0.0-0.2); BILIRUBIN,INDIRECT 0.2 mg/dL (0.0-0.9)
== END 2017-05-15 10:53 | disposition home or self-care (01) ==
LOC: CED 08:27
PROVIDERS: Emergency Medicine
DX: R10.84 Generalized abdominal pain (principal); R11.0 Nausea; J44.9 Chronic obstructive pulmonary disease, unspecified; I10 Essential (primary) hypertension; Z90.49 Acquired absence of other specified parts of digestive tract; Z98.890 Other specified postprocedural states; Z88.8 Allergy status to other drugs, medicaments and biological substances; Z91.040 Latex allergy status; Z91.09 Other allergy status, other than to drugs and biological substances; Z79.899 Other long term (current) drug therapy; Z79.82 Long term (current) use of aspirin
CPT/HCPCS: 36415; 74000; 80048; 80076; 82150; 83690; 85025; 96361; 96374; 96375; 99284; J2270; J2405

== ENCOUNTER 2017-05-20 11:28 | Emergency (ER) | payer MEDICARE, OTHER ==
[~2017-05-20] VITALS: Ht 188 cm; Wt 133.8 kg
== END 2017-05-20 13:44 | disposition home or self-care (01) ==
LOC: CED 11:28
DX: M54.2 Cervicalgia (principal); M54.5 Low back pain; G89.29 Other chronic pain; Z91.040 Latex allergy status; Z88.8 Allergy status to other drugs, medicaments and biological substances; Z91.018 Allergy to other foods
CPT/HCPCS: 36415; 96361; 96374; 96375; 99283; J1100; J1885; J2405

== ENCOUNTER 2017-06-08 06:18 | Emergency (ER) | payer MEDICARE, OTHER ==
[~2017-06-08] VITALS: Ht 188 cm; Wt 133.8 kg
--- NOTE | ~2017-06-08 | CR229 ---
[facility] A Service of [facility] RADIOLOGY TEXT RESULTS PATIENT: ROMÁN PLUMMER LOCATION: [facility] : 62 UNIT #: [id number] AGE: [address]: Enmanuel Wallace MD SEX: M ORDER DR: [id number] [facility] [address] [place], [place] [address] [id number] E MR#: [id number] Acc #: [id number] NAME: ROMÁN PLUMMER : 1960 SEX: M STUDY DATE/TIME: 06/08/2017 7:37 UNIT: [facility] ROOM: STUDY DESCRIPTION: CR Shoulder Min 2 View Lt Attending Physician: Enmanuel Wallace M.D. Ordering Physician: Enmanuel [id number] Jaziel Wallace Primary Care Physician: Brittany Smith M.D. MEDICAL IMAGING REPORT This report is preliminary unless electronic signature is present EXAM Left shoulder 06/08 INDICATIONS Left shoulder pain for 1 day after a fall. FINDINGS 3 views of the left shoulder were obtained. 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 There is no AC joint separation. No glenohumeral dislocation is seen. No acute fractures are seen. IMPRESSION AC joint arthropathy. No acute fracture or malalignment. Dictated by... Sathish King Jr., M.D. THIS IS AN ELECTRONICALLY VERIFIED REPORT Sathish King Jr., M.D. at 06/08/2017 3:38 PM SHAHEEN/lyn TD: 06/08/2017 13:41 JOB #: [id number] MEDICAL IMAGING REPORT Page 1 of 1 COPY
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
== END 2017-06-08 08:42 | disposition home or self-care (01) ==
LOC: CED 06:18
DX: S46.912A Strain of unspecified muscle, fascia and tendon at shoulder and upper arm level, left arm, initial encounter (principal); S39.012A Strain of muscle, fascia and tendon of lower back, initial encounter; I10 Essential (primary) hypertension; J44.9 Chronic obstructive pulmonary disease, unspecified; W01.0XXA Fall on same level from slipping, tripping and stumbling without subsequent striking against object, initial encounter; Y92.9 Unspecified place or not applicable; Z88.8 Allergy status to other drugs, medicaments and biological substances; Z91.018 Allergy to other foods; Z91.040 Latex allergy status
CPT/HCPCS: 72100; 73030; 96372; 99283; J1885